=== PATIENT | male | born 1980 | race Caucasian/White ===

== ENCOUNTER 2020-04-30 12:20 | Emergency (ER) | payer OTHER, SELFPAY ==
--- NOTE | ~2020-04-30 | XR_ITS ---
EXAMINATION: XR thoracic spine 3V DATE: 04/30/2020 13:43 INDICATION: Back pain TECHNIQUE: AP, lateral and lateral swimmer's views of the thoracic spine were obtained. COMPARISON: CT, 02/14/2019 FINDINGS: Bone alignment is normal. There is no fracture. The vertebral body heights are maintained. There is mild loss of intervertebral disc space height at a few levels in the lower thoracic spine. S mall degenerative osteophytes project from the anterior endplates of multiple vertebral bodies. IMPRESSION: 1. Mild thoracic spondylosis without acute findings or significant interval change. Reviewed, dictated and finalized at location A. IMPRESSION: 1. Mild thoracic spondylosis without acute findings or significant interval shelli e.
--- NOTE | ~2020-04-30 | XR_ITS ---
EXAMINATION: XR lumbar spine 2-3V DATE: 04/30/2020 13:43 INDICATION: Low back pain TECHNIQUE: Anteroposterior and lateral views of the lumbar spine, and cone-down lateral view of the l umbosacral junction were obtained. COMPARISON: 06/04/2017 FINDINGS: There are changes of anterior and posterior fusion at L4-5. There are 4 mm of stable retrol isthesis of L5 on S1. There is mild loss of intervertebral disc space height at L5-S1. The vertebral body heights are maintained. There is no fracture. IMPRESSION: 1. Changes of anterior and posterior fusion at L4-5 and mild lumbar spondylosis without acute findin gs or significant interval change. Reviewed, dictated and finalized at location A. IMPRESSION: 1. Changes of anterior and posterior fusion at L4-5 and mild lumbar spondylosi s without acute findings or significant interval change.
[2020-04-30 12:41] VITALS: BP 143/75; PULSE 80; RESP 18; TEMP 36.6; O2SAT 99
[2020-04-30] MEDS: KETOROLAC (*BKC) 60 MG/2 ML VIAL IM (13:45)
--- NOTE | 2020-04-30 14:29 | ED.BACK ---
HPI - Back Pain/Injury General Chief Complaint: Back Pain/Injury Stated Complaint: back pain Time Seen by Provider: 04/30/20 12:32 Source: patient Mode of arrival: ambulatory Limitations: no limitations History of Present Illness HPI Narrative: Patient is a 39-year-old male who presents to emergency department for evaluation of worsening low back pain with history of chronic low back pain patient notes aching pain of the low back worse with activity and movement patient notes radicular symptoms at times patient denies any injury or trauma patient has history of lumbar fusion patient has not followed for his recent increase in back pain he does not currently have a primary care notes several days ago was getting out of a truck and had increasing pain Related Data Allergies Allergy/AdvReac Type Severity Reaction Status Date / Time erythromycin base Allergy Severe Anaphylactic Verified 02/14/19 00:43 Shock [facility] Surgical History Surgical History (Updated 04/30/20 @ 14:31 by Jose Aburto PA-C) History of orthopedic surgery Social History Social History (Updated 04/30/20 @ 14:31 by Jose Aburto PA-C) Smoking status: Never smoker Gender identity (if verbalized by the patient): Male Exam Narrative: Exam Narrative: GENERAL: Well-appearing, well-nourished, and in no acute distress. HEAD: Normocephalic, atraumatic. EYES: PERRLA and EOMI. ENT: Nares clear, no rhinorrhea or epistaxis. Mucous membranes moist. CHEST: Clear to auscultation. No respiratory distress. No wheezes rales or rhonchi HEART: Regular rate and rhythm. No murmur heard. Normal peripheral pulses. ABDOMEN: Soft, nontender, nondistended EXTREMITIES: Normal range of motion. No edema. Thoracolumbar tenderness no deformities noted SKIN: Warm, dry, no rash. NEURO: No focal deficits. Alert and oriented x3. Normal speech and gait. Motor and sensory intact and symmetrical in the extremities PSYCH: Normal mood and affect. Course Course Emergency Course: Patient in the room in no distress aware of case findings treatment plan and diagnosis Vital Signs Vital signs: Vital Signs Temperature 97.8 F 04/30/20 12:41 Pulse Rate 80 04/30/20 12:41 Respiratory Rate 18 04/30/20 12:41 Blood Pressure 143/75 H 04/30/20 12:41 Pulse Oximetry 99 04/30/20 12:41 Temperature 97.8 F 04/30/20 12:41 Pulse Rate 80 04/30/20 12:41 Respiratory Rate 18 04/30/20 12:41 Blood Pressure 143/75 H 04/30/20 12:41 Pulse Oximetry 99 04/30/20 12:41 MDM - Back Pain/Injury MDM Narrative Medical decision making narrative: Patients pain is positional in nature and localized to back without signs of cord compression or cauda equina based on neurological exam, skeletal exam and history. No fever or other significant factors to suggest osteomyelitis or spinal epidural abscess. No symptoms or signs to suggest pain is referred from abdominal or / cardiopulmonary sources. No pulsatile masses noted on exam. Patient ambulates with steady gait and is stable for outpatient management given case findings. Imaging Data Radiologist's impression: ITS Impressions Lumbar Spine X-Ray 04/30/20 13:49 IMPRESSION: 1. Changes of anterior and posterior fusion at L4-5 and mild lumbar spondylosis without acute findings or significant interval change. Thoracic Spine X-Ray 04/30/20 13:53 IMPRESSION: 1. Mild thoracic spondylosis without acute findings or significant interval change. Discharge Plan Discharge Clinical Impression: Lumbar back pain, Back pain, thoracic Patient Disposition: Home, Self-Care Condition: Stable Instructions: Antibiotic Form, Acute Low Back Pain (ED) Additional Instructions: Medications as needed and prescribed. Limit lifting and bending. You may apply heat or cold to the area as needed. Follow up with your doctor for further care in the next 7 days. Contact your doctor or return to the emergency dep
[2020-04-30 14:42] VITALS: BP 125/83; PULSE 72; RESP 18; O2SAT 98
== END 2020-04-30 14:43 | disposition home or self-care (01) ==
PROVIDERS: Emergency Provider Emergency Medicine
DX: M54.5 Low back pain (principal); M54.6 Pain in thoracic spine; Z98.1 Arthrodesis status; M47.814 Spondylosis without myelopathy or radiculopathy, thoracic region; M47.816 Spondylosis without myelopathy or radiculopathy, lumbar region
CPT/HCPCS: 72072; 72100; 96372; 99283; J1885

== ENCOUNTER 2020-06-20 13:00 | Emergency (ER) | payer MEDICAID, SELFPAY ==
--- NOTE | ~2020-06-20 | XR_ITS ---
XR forearm RT 2V 06/20/2020 14:13 INDICATION: Right arm pain after fall PROCEDURE: 2 views right forearm COMPARISON: No prior studies for comparison. FINDINGS: Fracture, dislocation or subluxation is not identified. The soft tissues appear within norm al limits. No foreign bodies are identified. IMPRESSION: 1: NO ACUTE BONE OR JOINT ABNORMALITY IDENTIFIED. Reviewed, dictated and finalized at location A.
--- NOTE | ~2020-06-20 | XR_ITS ---
XR hand LT min 3V, XR wrist LT min 3V 06/20/2020 14:13 INDICATION: Left wrist and hand pain after fall PROCEDURE: 3 views left hand and 4 views left wrist COMPARISON: No prior studies for comparison. FINDINGS: Fracture, dislocation or subluxation is not identified. The soft tissues appear within norm al limits. No foreign bodies are identified. IMPRESSION: 1: NO ACUTE BONE OR JOINT ABNORMALITY IDENTIFIED. Reviewed, dictated and finalized at location A. IMPRESSION: 1: NO ACUTE BONE OR JOINT ABNORMALITY IDENTIFIED.
--- NOTE | ~2020-06-20 | XR_ITS ---
XR knee RT 3V, XR knee LT 3V 06/20/2020 14:13 Indication: Knee pain after fall Procedure: 3 views of each knee Comparison: No prior studies for comparison. Findings: No fracture or traumatic malalignment. No significant joint effusion. No radiopaque foreign bodies. Exostosis identified originating from the left fibular metaphysis, likely benign osteochondr judy. Impression: 1: No acute fracture. Reviewed, dictated and finalized at location A. Impression: 1: No acute fracture. Impression: 1: No acute fracture.
[2020-06-20 13:17] VITALS: BP 131/77; PULSE 78; RESP 20; TEMP 36.1; O2SAT 97
--- NOTE | 2020-06-20 14:03 | ED.GENADULT ---
HPI - General Adult General Chief complaint: Fall Stated complaint: Fall, Back Pain Time Seen by Provider: 06/20/20 13:43 Source: patient History of Present Illness HPI narrative: Patient is a 39 y/o male complaining of right arm pain, left hand/wrist pain and bilateral knee pain after a fall approximately 1 hour ago. 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 He also has chronic back pain. He rates his pain as 9/10 and describes it a water running down. He state that he did hit the right side of head, but denies any headache or LOC. Related Data Home Medications Medication Instructions Recorded Confirmed No Home Medications 06/20/20 06/20/20 Allergies Allergy/AdvReac Type Severity Reaction Status Date / Time erythromycin base Allergy Severe Anaphylactic Verified 06/20/20 13:21 Shock Review of Systems Constitutional: Constitutional: Denies chills, Denies fever(s), Denies headache(s) and Denies weakness Eyes: Eyes: Denies blurry vision ENT: Denies headache(s) and Denies neck pain Cardiovascular: Cardiovascular: Denies chest pain and Denies dyspnea Respiratory: Respiratory: Denies cough and Denies dyspnea Gastrointestinal: Gastrointestinal: Denies abdominal pain, Denies diarrhea, Denies nausea and Denies vomiting Genitourinary: Genitourinary: Denies hematuria and Denies dysuria Musculoskeletal: Musculoskeletal: Denies back pain, Reports arthralgias (bilateral knee pain), Denies neck pain and Reports other (right arm pain and left hand pain) Neurologic: Denies headache(s) and Denies weakness PMFSH Surgical History Surgical History History of orthopedic surgery Social History Social History Smoking status: Never smoker Gender identity (if verbalized by the patient): Male Exam Const: General: no acute distress and well developed Orientation/consciousness: oriented to person, oriented to place, oriented to time and patient oriented x3 HENMT: Head: normocephalic Ears: external ears normal General nose exam: Normal external nose present Eyes: General: appearance normal, both eyes and all related structures Conjunctivae: conjunctivae normal Neck: Neck: normal visual inspection and full ROM Chest: Chest palpation & inspection: normal inspection of the chest and no tenderness Resp: Effort & Inspection: normal respiratory effort Auscultation: clear to auscultation bilaterally Cardio: Rate: regular rate Rhythm: regular rhythm GI: GI Palp: No abdominal tenderness and Yes Soft to palpation Skin: General skin exam: normal color and turgor normal Rashes: rashes noted (rash on right knee consistent with h/o psoriasis) Trauma: abrasion (right knee, left hand and right forearm) Neuro: General: oriented to person, oriented to place, oriented to time and patient oriented x3 Cranial nerves: Yes CN's II-XII intact bilaterally Cognition (Neuro): normal cognition Speech: normal speech Motor exam (neuro): 5/5 motor strength present throughout Sensory Exam: normal sensation Coordination: [id number] test normal and [id number] test normal Extrem: General: normal to inspection, full ROM and no pedal edema Psych: Appearance: grossly normal Mental Status: mental status grossly normal Affect: normal affect Course Vital Signs Vital signs: Vital Signs Temperature 36.1 C L 06/20/20 13:17 Pulse Rate 78 06/20/20 13:17 Respiratory Rate 20 06/20/20 13:17 Blood Pressure 131/77 06/20/20 13:17 Pulse Oximetry 97 06/20/20 13:17 Temperature 36.1 C L 06/20/20 14:43 Pulse Rate 84 06/20/20 16:03 Respiratory Rate 17 06/20/20 16:03 Blood Pressure 136/90 06/20/20 16:03 Pulse Oximetry 97 06/20/20 16:03 Medical Decision Making Vital Signs Vital Signs: Vital Signs Temperature 36.1 C L 06/20/20 13:17 Pulse Rate 78 06/20/20 13:17
[2020-06-20] MEDS: KETOROLAC (*BKC) 60 MG/2 ML VIAL IM (14:13)
[2020-06-20 14:43] VITALS: TEMP 36.1
[2020-06-20] MEDS: TETANUS,DIPHTHERIA,AC PERTUSSIS ADULT (0.5 ML) BOOSTRIX IM (15:20)
[2020-06-20 16:03] VITALS: BP 136/90; PULSE 84; RESP 17; O2SAT 97
== END 2020-06-20 16:05 | disposition home or self-care (01) ==
PROVIDERS: Emergency Provider Emergency Medicine; PCP Emergency Medicine
DX: S80.211A Abrasion, right knee, initial encounter (principal); S60.512A Abrasion of left hand, initial encounter; S50.811A Abrasion of right forearm, initial encounter; M25.532 Pain in left wrist; W10.1XXA Fall (on)(from) sidewalk curb, initial encounter; Z23 Encounter for immunization
CPT/HCPCS: 73090; 73110; 73130; 73562; 90471; 90715; 96372; 99284; J1885